=== PATIENT | male | born 1965 | race Caucasian/White ===

== ENCOUNTER → 2017-05-13 | Outpatient (CLI) | payer OTHER ==
--- NOTE | 2017-05-14 07:05 | US ---
EXAMINATION TYPE: US carotid duplex BILAT DATE OF EXAM: 05/13/2017 COMPARISON: NONE CLINICAL HISTORY: R09.89 Carotid Bruit. EXAM MEASUREMENTS: RIGHT: Peak Systolic Velocity (PSV) cm/sec ----- Right CCA: 156 ----- Right ICA: 129 ----- Right ECA: 203 ICA/CCA ratio: 0.8 RIGHT: End Diastole cm/sec ----- Right CCA: 25.4 ----- Right ICA: 45.4 ----- Right ECA: 23.3 LEFT: Peak Systolic Velocity (PSV) cm/sec ----- Left CCA: 162 ----- Left ICA: 204 ----- Left ECA: 222 ICA/CCA ratio: 1.2 LEFT: End Diastole cm/sec ----- Left CCA: 38.4 ----- Left ICA: 38.4 ----- Left ECA: 19.2 VERTEBRALS (direction of flow): Right Vertebral: Antegrade Left Vertebral: Antegrade Rhythm: No significant stenosis seen, mildly elevated velocities throughout entire carotid system. Mild bilat eral plaque noted. IMPRESSION: Elevated velocities within the coming carotid arteries, internal carotid arteries, and e xternal carotid arteries without abnormal internal carotid artery/ common carotid artery ratio sugges ts underlying hypertension rather than stenosis. Minimal grayscale plaquing bilaterally.
== END ==
LOC: RADUSWWP 15:54
PROVIDERS: ATTEND Family Medicine
DX: I70.90 Unspecified atherosclerosis (principal)
CPT/HCPCS: 93880

== ENCOUNTER → 2017-12-23 | Outpatient (CLI) | payer OTHER ==
--- NOTE | 2017-12-23 19:47 | CONS ---
CONSULTATION DATE OF SERVICE: 12/23/2017. HISTORY: A 52-year-old male patient presenting with loud snoring, sleep fragmentation, frequent episodes of waking up gasping for air, and choking sensation. He goes to bed around 10 p.m., wakes up every 1 to 2 hours, and ultimately gets out of bed around 6 a.m. He is averaging around 6 hours of sleep. His condition has been gradually getting worse over the past 10 years and he is coming in for an evaluation. He is very much somnolent and sleepy. He is retired. His [place] score is 17. No history of any motor vehicle accidents because of feeling drowsy or sleepy. PAST MEDICAL HISTORY: Degenerative arthritis including shoulders and knees. PAST SURGICAL HISTORY: Right knee and right shoulder surgery. DRUG ALLERGIES: Not known. OUTPATIENT MEDICATION: Xanax. SOCIAL HISTORY: The patient is a nonsmoker. No history of alcohol. No history of IV drugs. FAMILY HISTORY: Negative for sleep apnea. REVIEW OF SYSTEMS: A 12-point review of system was done. No history of any insomnia. No nocturia. He has grinding of the teeth. He has no sleepwalking or sleep talking. Occasional leg kicks have been noted. No palpitations. No anxiety. No heartburn. No depression at this point in time. PHYSICAL EXAMINATION: VITAL SIGNS: BP is 124/76, pulse 72, respirations 16, temperature 99.4, saturation 96% on room air. Weight is 240, height is 6 feet 0 inches, BMI 32.5. Neck size is 17 inches. GENERAL APPEARANCE: Calm and comfortable, no acute distress. HEAD: Head is atraumatic, normocephalic. NECK: Supple. There is no JVD. No neck masses. Mallampati class IV. LUNGS: Clear to auscultation. HEART: Sounds are regular. Normal S1, S2. No S3, S4. No murmurs. ABDOMEN: Soft, nontender. No organomegaly. EXTREMITIES: No edema. No cyanosis or clubbing. NEUROLOGIC: Alert and oriented x3. No focal neurological deficits. PSYCHIATRIC: Negative for anxiety or depression. SKIN: Negative for any wounds or ulceration. IMPRESSION: 1. Obstructive sleep apnea clinically suspected and the suspicion is high. 2. Loud snoring. 3. Chronic hypersomnia, [place] score of 17. 4. Mallampati class 4. PLAN: 1. Avoid driving especially when feeling drowsy or sleepy. 2. Encourage sleeping around 7 hours of sleep every day, in a 24-hour period. 3. Proceed with a polysomnogram, looking for any significant sleep breathing disorder. BURT / IJN: [id number] /
== END | disposition home or self-care (01) ==
LOC: SLEEP 15:32
PROVIDERS: ATTEND Internal Medicine Critical Care Medicine
DX: G47.19 Other hypersomnia (principal); R06.83 Snoring; R09.89 Other specified symptoms and signs involving the circulatory and respiratory systems; M19.012 Primary osteoarthritis, left shoulder; M19.011 Primary osteoarthritis, right shoulder; M17.0 Bilateral primary osteoarthritis of knee; Z79.899 Other long term (current) drug therapy
CPT/HCPCS: 99211